=== PATIENT | male | born 1950 | race Caucasian/White ===

== ENCOUNTER 2018-09-26 20:36 | Emergency (ER) | payer OTHER ==
[~2018-09-26] VITALS: Ht 180.3 cm; Wt 74.4 kg
[~2018-09-26 20:36] MED LIST: ATORVASTATIN CA20 MG PO; FENOFIBRATE145 MG PO; FISH OIL PO; METFORMIN HCL500 MG PO; METOPROLOL TART50 MG PO; PLAVIX75 MG PO; VASOTEC10 MG PO
== END 2018-09-26 21:36 | disposition home or self-care (01) ==
LOC: FSED 20:36
DX: R51 Headache (principal); J01.10 Acute frontal sinusitis, unspecified
CPT/HCPCS: 99282